=== PATIENT | male | born 1945 | race Caucasian/White ===

== ENCOUNTER 2018-05-22 14:42 | Emergency (ER) | payer MEDICARE, OTHER ==
[2018-05-22] MEDS ORDERED: Adacel (T-DAP) 0.5 ML SYRINGE ONE (15:04)
--- NOTE | 2018-05-22 16:05 | CT ---
CT HEAD NONCONTRAST: Date: 05/22/18 HISTORY: POS: [id number]
[2018-05-22] MEDS ORDERED: Lidocaine 1% 20 ML MDV ONE (16:19)
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
[2018-05-22] MEDS ORDERED: Bacitracin Zinc 1 Packet ONE (16:58)
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
== END 2018-05-22 17:04 | disposition home or self-care (01) ==
LOC: SCSER 14:42
DX: S01.112A Laceration without foreign body of left eyelid and periocular area, initial encounter (principal); E78.5 Hyperlipidemia, unspecified; M19.90 Unspecified osteoarthritis, unspecified site; E03.9 Hypothyroidism, unspecified; Z79.899 Other long term (current) drug therapy; W55.22XA Struck by cow, initial encounter
CPT/HCPCS: 12013; 70450; 72125; 90471; 90715; J2001